=== PATIENT | male | born 1965 | race Hispanic/Latino ===

== ENCOUNTER 2022-11-11 18:04 | Inpatient (IN) | payer MEDICARE ==
[~2022-11-11] VITALS: Ht 152.4 cm; Wt 54.4 kg
[2022-11-11] MEDS ORDERED: SODIUM CHLORIDE 0.9% 1000ML 1,000 ML IV ONE (18:45)
[2022-11-11 18:51] LABS: BASOPHILS % 0.2 % (0.0-1.0); EOSINOPHILS # (AUTO) 0.3 (0.0-0.4); EOSINOPHILS % 1.8 % (0.0-6.0); HEMATOCRIT 29.7 % (38.2-49.6); HEMOGLOBIN 9.1 g/dL (14.0-18.0); LYMPHOCYTES # (AUTO) 0.8 (1.0-3.2); LYMPHOCYTES % 4.2 % (18.0-39.1); MEAN CORPUSCULAR HGB CONC 30.6 g/dL (31-35); MEAN CORPUSCULAR VOLUME 81.6 fL (81-99); MONOCYTES # (AUTO) 1.3 (0.2-0.8); MONOCYTES % 6.5 % (4.4-11.3); NEUTROPHILS # (AUTO) 16.6 (2.1-6.9); NEUTROPHILS % 86.7 % (38.7-80.0); PLATELET COUNT 373 x10e3/uL (140-360); RED BLOOD COUNT 3.64 x10e6/uL (4.3-5.7); RED CELL DISTRIBUTION WIDTH 18.7 % (11.7-14.4)
[2022-11-11 19:07] LABS: ALBUMIN/GLOBULIN RATIO 0.3 (0.8-2.0); ANION GAP 14.6 mmol/L (8-16); CALCIUM 9.1 mg/dL (8.4-10.2); CREATININE, SERUM 0.76 mg/dL (0.72-1.25); POTASSIUM 3.6 mmol/L (3.5-5.1)
[2022-11-11 19:52] LABS: CLARITY,URINE SL CLOUDY (CLEAR); COLOR,URINE YELLOW (YELLOW); KETONES,URINE NEGATIVE (NEGATIVE); LEUKOCYTE ESTERASE ,URINE LARGE (NEGATIVE); NITRITE,URINE POSITIVE (NEGATIVE); PROTEIN,URINE DIPSTICK 1+ (NEGATIVE); URINE UROBILINOGEN 0.2 mg/dL (0.2 - 1)
[2022-11-11 20:06] LABS: BACTERIA,URINE MANY /HPF; RBC,URINE 0-5 /HPF (0-5)
[2022-11-11] MEDS ORDERED: CEFTRIAXONE 1 GM VIAL IV ONE (20:15)
[2022-11-11] MEDS ORDERED: IBUPROFEN 600 MG TAB PO STA (20:39)
[2022-11-11] MEDS ORDERED: IBUPROFEN 600 MG TAB ONE (20:41)
[2022-11-11] MEDS ORDERED: ONDANSETRON HCL INJ 2MG/ML 2ML 2 MG/ML VIAL IV PRN (22:15)
[2022-11-11] MEDS ORDERED: SODIUM CHLORIDE FLUSH 10 ML SYR INJ PRN (22:15)
[2022-11-12] MEDS ORDERED: DOCUSATE SODIUM 100 MG CAP PO PRN (00:30)
[2022-11-12] MEDS ORDERED: SIMETHICONE 80 MG CHEW PO PRN (00:30)
[2022-11-12] MEDS: SODIUM CHLORIDE 0.45% 1,000 ML IV SCH ×2 (01:06→13:48)
[2022-11-12 05:34] LABS: BASOPHILS % 0.2 % (0.0-1.0); EOSINOPHILS # (AUTO) 0.3 (0.0-0.4); HEMATOCRIT 27.7 % (38.2-49.6); HEMOGLOBIN 8.5 g/dL (14.0-18.0); LYMPHOCYTES # (AUTO) 0.8 (1.0-3.2); LYMPHOCYTES % 4.7 % (18.0-39.1); MEAN CORPUSCULAR HEMOGLOBIN 25.1 pg (28-32); MEAN CORPUSCULAR HGB CONC 30.7 g/dL (31-35); MONOCYTES # (AUTO) 1.4 (0.2-0.8); MONOCYTES % 8.2 % (4.4-11.3); NEUTROPHILS # (AUTO) 14.6 (2.1-6.9); NEUTROPHILS % 84.3 % (38.7-80.0); PLATELET COUNT 419 x10e3/uL (140-360); RED BLOOD COUNT 3.38 x10e6/uL (4.3-5.7); RED CELL DISTRIBUTION WIDTH 18.2 % (11.7-14.4)
[2022-11-12 06:10] LABS: ALBUMIN 1.8 g/dL (3.5-5.0); ALBUMIN/GLOBULIN RATIO 0.4 (0.8-2.0); ANION GAP 12.3 mmol/L (8-16); CALCIUM 8.7 mg/dL (8.4-10.2); CREATININE, SERUM 0.73 mg/dL (0.72-1.25); POTASSIUM 3.3 mmol/L (3.5-5.1)
[2022-11-12] MEDS: BACLOFEN 10 MG TAB PO SCH ×3 (08:51→20:53)
[2022-11-12] MEDS: ACETAMINOPHEN 325 MG TAB PO PRN ×2 (08:54→18:21)
[2022-11-12 10:25] VITALS: BP 113/71
[2022-11-12 11:45] VITALS: BP 116/64
[2022-11-12 15:48] VITALS: BP 113/71
[2022-11-12] MEDS ORDERED: PROTONIX20 MG PO (16:13)
[2022-11-12] MEDS ORDERED: VITAMIN C1000 MG PO (16:13)
[2022-11-12] MEDS ORDERED: IMIPRAMINE HCL10 MG PO (16:13)
[2022-11-12] MEDS ORDERED: MULTI-VITAMIN1 EACH PO (16:13)
[2022-11-12] MEDS ORDERED: FERROUS SULFAT324 MG PO (16:13)
[2022-11-12] MEDS ORDERED: BACLOFEN10 MG PO (16:13)
[2022-11-12] MEDS ORDERED: OXYBUTYNIN CHLOR5 MG PO (16:13)
[2022-11-12] MEDS ORDERED: NEURONTIN100 MG PO (18:48)
[2022-11-12] MEDS ORDERED: CARAFATE1 GM/10 ML PO (19:18)
[2022-11-12] MEDS ORDERED: IBUPROFEN800 MG PO (19:18)
[2022-11-12 20:00] VITALS: BP_SYST 113; BP_SYST 116; BP_DIAS 71; BP_DIAS 75
[2022-11-12] MEDS: Vancomycin IV 1 GM in SODIUM CHLORIDE 0.9% 250ML 250 ML IV SCH (20:53)
[2022-11-13] VITALS (8 sets, daily range): BP systolic 95–128; BP diastolic 62–75
[2022-11-13] MEDS: SODIUM CHLORIDE 0.45% 1,000 ML IV SCH ×2 (03:10→16:56)
[2022-11-13 05:19] LABS: BASOPHILS # (AUTO) 0.1 (0.0-0.1); BASOPHILS % 0.4 % (0.0-1.0); EOSINOPHILS # (AUTO) 0.3 (0.0-0.4); EOSINOPHILS % 2.3 % (0.0-6.0); HEMATOCRIT 25.5 % (38.2-49.6); LYMPHOCYTES # (AUTO) 1.1 (1.0-3.2); LYMPHOCYTES % 8.3 % (18.0-39.1); MEAN CORPUSCULAR HEMOGLOBIN 25.2 pg (28-32); MEAN CORPUSCULAR HGB CONC 31.4 g/dL (31-35); MEAN CORPUSCULAR VOLUME 80.4 fL (81-99); MONOCYTES # (AUTO) 1.2 (0.2-0.8); MONOCYTES % 9.6 % (4.4-11.3); NEUTROPHILS # (AUTO) 10.2 (2.1-6.9); NEUTROPHILS % 78.7 % (38.7-80.0); PLATELET COUNT 537 x10e3/uL (140-360); RED BLOOD COUNT 3.17 x10e6/uL (4.3-5.7); RED CELL DISTRIBUTION WIDTH 18.1 % (11.7-14.4)
[2022-11-13 05:37] LABS: ANION GAP 10.9 mmol/L (8-16); CALCIUM 8.6 mg/dL (8.4-10.2); CREATININE, SERUM 0.6 mg/dL (0.72-1.25); PHOSPHORUS 2.9 MG/DL (2.3-4.7)
[2022-11-13 05:41] LABS: POTASSIUM 2.9 mmol/L (3.5-5.1)
[2022-11-13] MEDS ORDERED: POTASSIUM CHLORIDE 20 MEQ TAB CR PO STA (05:45)
[2022-11-13] MEDS: PANTOPRAZOLE SOD 40 MG TABEC PO SCH ×2 (10:36→16:50)
[2022-11-13] MEDS: BACLOFEN 10 MG TAB PO SCH ×3 (10:36→21:38)
[2022-11-13] MEDS: ASCORBIC ACID 500 MG TAB PO SCH (10:36)
[2022-11-13] MEDS: FERROUS SULFATE 325 MG TAB PO SCH (10:36)
[2022-11-13] MEDS: Vancomycin IV 1 GM in SODIUM CHLORIDE 0.9% 250ML 250 ML IV SCH (10:36)
[2022-11-13] MEDS ORDERED: POTASSIUM CHLORIDE 20 MEQ TAB CR PO ONE (10:45)
[2022-11-13] MEDS: OXYBUTYNIN CHLORIDE 5 MG TAB PO SCH ×2 (14:42→21:37)
[2022-11-13] MEDS: IMIPRAMINE 10 MG PO SCH ×2 (15:00→21:00)
[2022-11-13] MEDS: ACETAMINOPHEN 325 MG TAB PO PRN (23:06)
[2022-11-14] VITALS (7 sets, daily range): BP systolic 104–131; BP diastolic 66–80
[2022-11-14] MEDS: SODIUM CHLORIDE 0.45% 1,000 ML IV SCH (06:19)
[2022-11-14 08:30] LABS: BASOPHILS % 0.3 % (0.0-1.0); EOSINOPHILS # (AUTO) 0.5 (0.0-0.4); EOSINOPHILS % 3.9 % (0.0-6.0); HEMATOCRIT 26.4 % (38.2-49.6); LYMPHOCYTES % 8.6 % (18.0-39.1); MEAN CORPUSCULAR HEMOGLOBIN 24.8 pg (28-32); MEAN CORPUSCULAR HGB CONC 30.3 g/dL (31-35); MONOCYTES # (AUTO) 1.2 (0.2-0.8); MONOCYTES % 10.5 % (4.4-11.3); NEUTROPHILS # (AUTO) 8.8 (2.1-6.9); PLATELET COUNT 429 x10e3/uL (140-360); RED BLOOD COUNT 3.22 x10e6/uL (4.3-5.7); RED CELL DISTRIBUTION WIDTH 18.1 % (11.7-14.4)
[2022-11-14 08:48] LABS: ANION GAP 11.7 mmol/L (8-16); CALCIUM 8.3 mg/dL (8.4-10.2); CREATININE, SERUM 0.66 mg/dL (0.72-1.25); MAGNESIUM 1.8 MG/DL (1.3-2.1); PHOSPHORUS 2.7 MG/DL (2.3-4.7); POTASSIUM 3.7 mmol/L (3.5-5.1)
[2022-11-14] MEDS: FERROUS SULFATE 325 MG TAB PO SCH (08:54)
[2022-11-14] MEDS: BACLOFEN 10 MG TAB PO SCH ×3 (08:54→22:15)
[2022-11-14] MEDS: OXYBUTYNIN CHLORIDE 5 MG TAB PO SCH ×3 (08:54→22:15)
[2022-11-14] MEDS: PANTOPRAZOLE SOD 40 MG TABEC PO SCH ×2 (08:54→16:56)
[2022-11-14] MEDS: GABAPENTIN 100 MG CAP PO SCH ×2 (08:54→16:56)
[2022-11-14] MEDS: ASCORBIC ACID 500 MG TAB PO SCH (08:55)
[2022-11-14] MEDS: Vancomycin IV 1 GM in SODIUM CHLORIDE 0.9% 250ML 250 ML IV SCH (08:56)
[2022-11-14] MEDS: IMIPRAMINE 10 MG PO SCH ×3 (09:00→21:00)
[2022-11-14] MEDS: ACETAMINOPHEN 325 MG TAB PO PRN (09:58)
[2022-11-15] VITALS (9 sets, daily range): BP systolic 102–115; BP diastolic 61–83
[2022-11-15] MEDS: ACETAMINOPHEN 325 MG TAB PO PRN ×3 (01:21→14:13)
[2022-11-15] MEDS: SODIUM CHLORIDE 0.45% 1,000 ML IV SCH ×3 (05:55→21:50)
[2022-11-15] MEDS: PANTOPRAZOLE SOD 40 MG TABEC PO SCH ×2 (08:04→16:58)
[2022-11-15] MEDS: OXYBUTYNIN CHLORIDE 5 MG TAB PO SCH ×3 (08:05→22:17)
[2022-11-15] MEDS: FERROUS SULFATE 325 MG TAB PO SCH (08:05)
[2022-11-15] MEDS: BACLOFEN 10 MG TAB PO SCH ×3 (08:05→22:17)
[2022-11-15] MEDS: IMIPRAMINE 10 MG PO SCH ×3 (08:06→22:17)
[2022-11-15] MEDS: GABAPENTIN 100 MG CAP PO SCH ×2 (08:13→16:58)
[2022-11-15] MEDS: ASCORBIC ACID 500 MG TAB PO SCH (08:13)
[2022-11-15] MEDS: Vancomycin IV 1 GM in SODIUM CHLORIDE 0.9% 250ML 250 ML IV SCH (08:14)
[2022-11-15] MEDS: SILVER SULFADIAZINE 50GM CREAM TOP SCH (08:15)
[2022-11-15 09:54] LABS: BASOPHILS # (AUTO) 0.1 (0.0-0.1); BASOPHILS % 0.5 % (0.0-1.0); EOSINOPHILS # (AUTO) 0.8 (0.0-0.4); EOSINOPHILS % 7.8 % (0.0-6.0); HEMATOCRIT 25.9 % (38.2-49.6); HEMOGLOBIN 7.7 g/dL (14.0-18.0); LYMPHOCYTES # (AUTO) 1.2 (1.0-3.2); LYMPHOCYTES % 11.9 % (18.0-39.1); MEAN CORPUSCULAR HEMOGLOBIN 24.7 pg (28-32); MEAN CORPUSCULAR HGB CONC 29.7 g/dL (31-35); MONOCYTES # (AUTO) 1.1 (0.2-0.8); MONOCYTES % 11.2 % (4.4-11.3); NEUTROPHILS # (AUTO) 6.3 (2.1-6.9); NEUTROPHILS % 64.9 % (38.7-80.0); PLATELET COUNT 587 x10e3/uL (140-360); RED BLOOD COUNT 3.12 x10e6/uL (4.3-5.7); RED CELL DISTRIBUTION WIDTH 18.2 % (11.7-14.4)
[2022-11-15] MEDS ORDERED: ONDANSETRON HCL 4 MG ORAL DISINTEGRATING TAB PO PRN (11:30)
[2022-11-15 13:03] LABS: EOSINOPHILS % (MANUAL) 5 % (0-7); LYMPHOCYTES % (MANUAL) 10 % (19-48); MONOCYTES % (MANUAL) 7 % (3.4-9.0); MYELOCYTES % (MANUAL) 1 % (0-0); NEUTROPHILS % (MANUAL) 75 % (40-74); PLATELET ESTIMATE SLIGHTLY INCREASED; PLATELET MORPHOLOGY COMMENT NORMAL
[2022-11-15 13:04] LABS: RBC MORPHOLOGY COMMENT NORMAL
[2022-11-15] MEDS ORDERED: IOPAMIDOL 370 MG/ML 100 ML INFUS..BTL INJ ONE (16:21)
[2022-11-15 22:38] LABS: % IRON SATURATION 19 % (15-50); IRON 19 ug/dL (65-175); TOTAL IRON BINDING CAPACITY 99 ug/dL (261-478); TRANSFERRIN 71 mg/dL (174-364)
[2022-11-16] VITALS (7 sets, daily range): BP systolic 105–124; BP diastolic 70–87
[2022-11-16] MEDS ORDERED: DONNATAL/LIDOCAINE/MAALOX 30 ML SUSP PO ONE ×4 (00:15→04:30)
[2022-11-16] MEDS: ACETAMINOPHEN 325 MG TAB PO PRN ×2 (00:51→07:45)
[2022-11-16] MEDS ORDERED: BELLADONNA ALK/PHENOBARBITAL 5 ML UDC PO ONE (04:45)
[2022-11-16] MEDS ORDERED: MAGNESIUM/ALUMINUM/SIMETHICONE 30 ML UDC PO ONE (04:45)
[2022-11-16] MEDS ORDERED: LIDOCAINE VISC 2% SOLN 15 ML UDC PO ONE (04:45)
[2022-11-16 08:32] LABS: BASOPHILS # (AUTO) 0.1 (0.0-0.1); BASOPHILS % 0.5 % (0.0-1.0); EOSINOPHILS % 8.5 % (0.0-6.0); HEMATOCRIT 26.5 % (38.2-49.6); LYMPHOCYTES % 8.4 % (18.0-39.1); MEAN CORPUSCULAR HGB CONC 30.2 g/dL (31-35); MEAN CORPUSCULAR VOLUME 82.8 fL (81-99); MONOCYTES # (AUTO) 1.2 (0.2-0.8); MONOCYTES % 9.9 % (4.4-11.3); NEUTROPHILS # (AUTO) 8.3 (2.1-6.9); NEUTROPHILS % 70.7 % (38.7-80.0); PLATELET COUNT 487 x10e3/uL (140-360); RED CELL DISTRIBUTION WIDTH 18.3 % (11.7-14.4)
[2022-11-16] MEDS: FERROUS SULFATE 325 MG TAB PO SCH (09:00)
[2022-11-16] MEDS: Vancomycin IV 1 GM in SODIUM CHLORIDE 0.9% 250ML 250 ML IV SCH (09:55)
[2022-11-16] MEDS: IRON SUCROSE 100 MG in SODIUM CHLORIDE 0.9% 100 ML IV SCH (09:55)
[2022-11-16] MEDS: GABAPENTIN 100 MG CAP PO SCH ×2 (09:55→17:00)
[2022-11-16] MEDS: ASCORBIC ACID 500 MG TAB PO SCH (09:56)
[2022-11-16] MEDS: OXYBUTYNIN CHLORIDE 5 MG TAB PO SCH ×3 (09:56→21:31)
[2022-11-16] MEDS: PANTOPRAZOLE SOD 40 MG TABEC PO SCH ×2 (09:56→17:00)
[2022-11-16] MEDS: BACLOFEN 10 MG TAB PO SCH ×3 (09:56→21:31)
[2022-11-16] MEDS: SILVER SULFADIAZINE 50GM CREAM TOP SCH (09:57)
[2022-11-16] MEDS: BACITRACIN ZINC 15 GM OINT TOP SCH (09:57)
[2022-11-16] MEDS: IMIPRAMINE 10 MG PO SCH ×3 (09:58→21:00)
[2022-11-16] MEDS: SODIUM CHLORIDE 0.45% 1,000 ML IV SCH (11:10)
[2022-11-16] MEDS ORDERED: PROPOFOL IV EMULSION 10 MG/ML 20 ML VIAL ONE (12:35)
[2022-11-16] MEDS ORDERED: MIDAZOLAM HCL 2 MG/2 ML VIAL ONE (13:13)
[2022-11-17] VITALS (8 sets, daily range): BP systolic 100–132; BP diastolic 53–89
[2022-11-17] MEDS: SODIUM CHLORIDE 0.45% 1,000 ML IV SCH ×2 (00:30→13:19)
[2022-11-17] MEDS: ACETAMINOPHEN 325 MG TAB PO PRN (04:52)
[2022-11-17] MEDS: IMIPRAMINE 10 MG PO SCH ×3 (08:08→20:54)
[2022-11-17] MEDS: FERROUS SULFATE 325 MG TAB PO SCH (08:10)
[2022-11-17] MEDS: BACLOFEN 10 MG TAB PO SCH ×3 (08:27→20:53)
[2022-11-17] MEDS: IRON SUCROSE 100 MG in SODIUM CHLORIDE 0.9% 100 ML IV SCH (08:27)
[2022-11-17] MEDS: Vancomycin IV 1 GM in SODIUM CHLORIDE 0.9% 250ML 250 ML IV SCH (08:27)
[2022-11-17] MEDS: OXYBUTYNIN CHLORIDE 5 MG TAB PO SCH ×3 (08:28→20:53)
[2022-11-17] MEDS: SILVER SULFADIAZINE 50GM CREAM TOP SCH (08:28)
[2022-11-17] MEDS: ASCORBIC ACID 500 MG TAB PO SCH (08:28)
[2022-11-17] MEDS: BACITRACIN ZINC 15 GM OINT TOP SCH (08:28)
[2022-11-17] MEDS: PANTOPRAZOLE SOD 40 MG TABEC PO SCH ×2 (08:28→17:40)
[2022-11-17] MEDS: GABAPENTIN 100 MG CAP PO SCH ×2 (08:28→17:40)
[2022-11-17] MEDS ORDERED: DOXYCYCLINE HY100 MG PO (09:43)
[2022-11-17] MEDS ORDERED: SILVADENE20 GM TOP (09:43)
[2022-11-17] MEDS ORDERED: CEPHALEXIN500 MG PO (09:43)
[2022-11-18 01:00] VITALS: BP 138/86
[2022-11-18] MEDS: ACETAMINOPHEN 325 MG TAB PO PRN (01:53)
[2022-11-18] MEDS: SODIUM CHLORIDE 0.45% 1,000 ML IV SCH (03:10)
[2022-11-18 05:36] VITALS: BP 104/64
[2022-11-18 08:26] VITALS: BP 104/64
== END 2022-11-18 08:34 | DRG 853 ==
LOC: ER 18:10 → ERHOLD 22:13 → MED/SURG2 11-12 10:05 → OBSVTOIN 11-14 08:47
PROVIDERS: ADMIT Internal Medicine; ATTEND Internal Medicine
PROC: 02HV33Z Insertion of Infusion Device into Superior Vena Cava, Percutaneous Approach (ICD-10-PCS; principal; 2022-11-13)
PROC: 0DB78ZX Excision of Stomach, Pylorus, Via Natural or Artificial Opening Endoscopic, Diagnostic (ICD-10-PCS; 2022-11-13)
PROC: 0DB48ZX Excision of Esophagogastric Junction, Via Natural or Artificial Opening Endoscopic, Diagnostic (ICD-10-PCS; 2022-11-13)
PROC: 0KBV0ZZ Excision of Right Foot Muscle, Open Approach (ICD-10-PCS; 2022-11-15)
PROC: 0KBW0ZZ Excision of Left Foot Muscle, Open Approach (ICD-10-PCS; 2022-11-15)
DX: A41.9 Sepsis, unspecified organism (principal); L89.613 Pressure ulcer of right heel, stage 3; L89.623 Pressure ulcer of left heel, stage 3; N39.0 Urinary tract infection, site not specified; M86.9 Osteomyelitis, unspecified; G82.20 Paraplegia, unspecified; E87.6 Hypokalemia; R13.10 Dysphagia, unspecified; K29.70 Gastritis, unspecified, without bleeding; I10 Essential (primary) hypertension; F32.A Depression, unspecified; K21.9 Gastro-esophageal reflux disease without esophagitis; N31.9 Neuromuscular dysfunction of bladder, unspecified; R01.1 Cardiac murmur, unspecified; L89.159 Pressure ulcer of sacral region, unspecified stage; L97.529 Non-pressure chronic ulcer of other part of left foot with unspecified severity; L97.519 Non-pressure chronic ulcer of other part of right foot with unspecified severity; Z93.3 Colostomy status; Z90.5 Acquired absence of kidney
CPT/HCPCS: 0223U; 36415; 43239; 51700; 74018; 74177; 80048; 80053; 80202; 81001; 82607; 82746; 83540; 83605; 83735; 84100; 84132; 84466; 85025; 85045; 87040; 87086; 87186; 88304; 88305; 88312; 88342; 93925; 99252; 99285; G0378; J0696; J1756; J2250; J2543; J7030; J7050; Q9967